=== PATIENT | male | born 1970 | race Caucasian/White ===

== ENCOUNTER 2016-08-18 15:44 | Emergency (ER) | payer MEDICARE ==
--- NOTE | ~2016-08-18 | CR126 ---
[facility] A Service of [facility] RADIOLOGY TEXT RESULTS PATIENT: RADHA MEDINA LOCATION: SED : 74 UNIT #: [id number] AGE: [address]: Larry Hawthorne DO SEX: M ORDER DR: [id number] [place] [id number] MR#: [id number] Acc #: [id number] NAME: RADHA MEDINA. : 1970 SEX: M STUDY DATE/TIME: 08/18/2016 16:24 UNIT: SED ROOM: STUDY DESCRIPTION: CR Foot Complete Min 3 View Lt Attending Physician: (Er) Larry Hawthorne Ordering Physician: Jossue) Larry Hawthorne Primary Care Physician: Terrance Denise M.D. MEDICAL IMAGING REPORT This report is preliminary unless electronic signature is present. EXAM Left foot, 3 views. HISTORY Swelling, pain x1 week, possible thorn in bottom of foot. FINDINGS 3 views of the left foot demonstrate extensive soft tissue swelling along the posterior and plantar aspect of the foot. Postsurgical changes are noted from apparent hindfoot fusion procedure with fusion across the subtalar joint. Chronic arthritic changes seen at the ankle joint with extensive hypertrophic bone, anterior ankle joint and dorsal aspect of the hind foot. Two cannulated screws in place. No definite defect is seen in the soft tissues to suggest a retained foreign body. There is subtle blistering of the skin along the plantar aspect of the foot that may represent a potential entry site. Degenerative ossification is seen in the Achilles tendon insertion. IMPRESSION 1. No discernible soft tissue foreign body identified, though conventional radiographs can be limited particular for evaluation of organic material. There is marked soft tissue swelling along the plantar aspect of the foot, particularly at the level of the ankle joint, and plantar calcaneus with a small defect in the soft tissues. No soft tissue gas identified. 2. Extensive postsurgical changes of the foot consistent with extensive hindfoot fusion procedure. There is advanced arthritic changes at the ankle joint with extensive hypertrophic change. Not mentioned above, both cannulated screws demonstrate significant lucency about the screws which may imply loss of fixation. Dictated by... [facility] A Service of [facility] RADIOLOGY TEXT RESULTS PATIENT: RADHA MEDINA LOCATION: SED : 74 UNIT #: [id number] AGE: [address]: Larry Hawthorne DO SEX: M ORDER DR: Coleman Retana M.D. THIS IS AN ELECTRONICALLY VERIFIED REPORT Coleman Retana M.D. at 08/18/2016 8:37 PM Uvaldo TD: 08/18/2016 19:37 JOB #: [id number] MEDICAL IMAGING REPORT Page 1 of 1
[~2016-08-18 15:44] MED LIST: ACETAMINOPHEN PO; ACETAMINOPHEN650 M3 PO; AMARYL2 MG PO; AMITRIPTYLINE100 MG PO; AMITRYPTYLINE PO; ATRAC-TAIN142 GM EXT; BACTRIM DS TABL1 TA1 PO; BACTRIM DS TABL1 TAB PO; COLACE PO; CUBICIN; CYMBALTA PO; DIABETIC MED; DOCUSATE SODIU100 MG PO; FIBER THERAPY625 MG PO; FISH OIL 1,2001 EAC1 PO; FUROSEMIDE40 MG PO; GLIMEPIRIDE2 MG PO; HUMALOG100 UNIT/2; HUMIBID-LA600 MG PO; HYDROCHLOROTH12.5 MG PO; HYDROCODON-ACE1 EAC7 PO; HYDROCODONE/APA1 T16 PO; HYDROXYZINE HCL50 MG PO; IBUPROFEN PO; IBUPROFEN600 MG PO; JANUVIA50 MG PO; LANTUS SOLOSTAR3 ML; LANTUS SOLOSTAR3 ML SUBQ; LASIX PO; LEVEMIR SUBQ; LIPITOR PO; LOPID600 MG PO; LORTAB 7.5-3251 EACH PO; LOVENOX40 MG/0.4 INJ; METHADONE PO; METHADOSE10 M1 PO; METHADOSE10 MG/ML PO; MILK OF MAGNESIA PO; MOTRIN400 M1 PO; MULTI VITAMIN1 EACH PO; NAPROSYN500 MG PO; NAPROXEN PO; NAPROXEN500 M1 PO; NORCO 10-325 TA1 TAB PO; NORVASC PO; NORVASC10 MG PO; PERCOCET10 PO; PERCOCET5/325 PO; PHENERGAN25 M1 PO; RIFAMPIN300 MG PO; VANCOMYCIN1.75 GM/50 IV; VICODIN 5/500 T1 TAB PO; VIT B12 PO; ZOFRAN ODT4 MG PO; ZYVOX600 MG PO; [UNRECOGNIZED DRUG - OTHER]; [UNRECOGNIZED DRUG - OTHER] PO
[2016-08-18 16:13] LABS: BASOPHIL# 0.1 X10e3 (0-0.3); BASOPHIL% 1.1 % (0-2.5); EOSINOPHIL# 0.1 X10e3 (0-0.7); EOSINOPHIL% 2.3 % (0.0-7.0); HEMATOCRIT 41.1 % (38.0-50.0); HEMOGLOBIN 14.5 gm/dL (13.0-16.0); LYMPHOCYTE# 1.1 X10e3 (1.0-3.5); LYMPHOCYTE% 19.1 % (17.0-45.0); MEAN CELL VOLUME 88.1 FL (83-96); MEAN CORPUSCULAR HEMOGLOBIN 31.2 PG (28-34); MEAN CORPUSCULAR HGB CONC 35.4 g/dL (30-36); MEAN PLATELET VOLUME 8.6 FL (6.5-11.5); MONOCYTE# 0.3 X10e3 (0-1.0); MONOCYTE% 5.4 % (3.0-12.0); NEUTROPHIL% 72.1 % (40-75); PLATELET COUNT 126 X10e3 (140-420); RED BLOOD COUNT 4.66 X10e (3.90-5.60); RED CELL DISTRIBUTION WIDTH 14.5 % (11.0-15.5); WHITE BLOOD COUNT 5.6 X10e3 (4.0-10.5)
[2016-08-18 16:14] LABS: DIFF IND NO
[2016-08-18 16:39] LABS: ALBUMIN SERUM 4.3 g/dL (3.5-5.0); BILIRUBIN, DIRECT 0.1 mg/dL (0.0-0.2); BILIRUBIN,INDIRECT 0.7 mg/dL (0.0-0.9); BILIRUBIN,TOTAL 0.8 mg/dL (0.2-2.0); BUN/CREATININE RATIO 22.5; CALCIUM SERUM 8.8 mg/dL (8.4-10.2); CREATININE SERUM 0.8 mg/dL (0.6-1.4); GLOM FILT RATE Estimated 108.7 mL/min (>60); POTASSIUM 3.7 mmol/L (3.5-5.1); PROTEIN TOTAL SERUM 6.3 g/dL (6.0-8.3)
== END 2016-08-18 18:47 | disposition home or self-care (01) ==
LOC: SED 15:44
PROVIDERS: Emergency Medicine
DX: E11.628 Type 2 diabetes mellitus with other skin complications (principal); L03.116 Cellulitis of left lower limb
CPT/HCPCS: 73630; 80048; 80076; 82947; 85025; 87040; 87070; 87077; 87186; 87205; 96365; 99284; J2543

== ENCOUNTER 2016-11-14 07:18 | Emergency (ER) | payer MEDICARE ==
[~2016-11-14] VITALS: Ht 185.4 cm; Wt 140.6 kg
[2016-11-14 07:55] LABS: URINE SOURCE CLEAN CATCH
[2016-11-14 07:57] LABS: URINE APPEARANCE CLEAR; URINE BILIRUBIN NEG (NEG); URINE BLOOD 1+ (NEG); URINE COLOR YELLOW; URINE GLUCOSE 300 MG/DL (NORM); URINE KETONE 1+ (NEG); URINE LEUKOCYTE ESTERASE NEG (NEG); URINE NITRATE NEG (NEG); URINE PROTEIN 3+ (NEG); URINE UROBILINOGEN 0.2 MG/DL (NORM)
[2016-11-14 08:07] LABS: MICRO INDICATED? YES
[2016-11-14 08:12] LABS: CULTURE INDICATED? NO; URINE BACTERIA NEG (NEG); URINE RBC 0-2 /[HPF] (0-2); URINE WBC 0-2 /[HPF] (0-5)
== END 2016-11-14 08:59 | disposition home or self-care (01) ==
LOC: SED 07:18
PROVIDERS: Emergency Medicine
DX: M54.42 Lumbago with sciatica, left side (principal); E11.9 Type 2 diabetes mellitus without complications; I10 Essential (primary) hypertension; Z98.890 Other specified postprocedural states; Z79.899 Other long term (current) drug therapy
CPT/HCPCS: 81003; 82947; 96372; 99283; J1885